=== PATIENT | female | born 1960 | race Caucasian/White ===

== ENCOUNTER 2024-05-03 15:46 | Emergency (ER) | payer MEDICARE, OTHER, SELFPAY ==
[2024-05-03 15:51] VITALS: BP 174/90
[2024-05-03 16:35] VITALS: BP 151/80
[2024-05-03 17:00] VITALS: BP 138/83
[2024-05-03 17:01] LABS: % Basophils 0.7 % (0-2); % Eosinophils 1.3 % (0-6); % Immature Granulocytes 0.1 % (0-0.5); % Lymphocytes 38.4 % (20.5-51.1); % Monocytes 9.6 % (1.7-9.3); % Neutrophils 49.9 % (42.2-75.2); Absolute Basophils 0.1 10^3/uL (0-0.2); Absolute Eosinophils 0.1 10^3/uL (0-0.7); Absolute Lymphocytes 2.6 10^3/uL (1.2-3.4); Absolute Monocytes 0.6 10^3/uL (0.1-0.6); Absolute Neutrophils 3.3 10^3/uL (1.4-6.5); Hematocrit 40.4 % (37.0-47.0); Hemoglobin 14.2 g/dL (12.0-16.0); Mean Corp Hgb Conc. 35.1 g/dL (33.0-37.0); Mean Corpuscular Hgb 32.8 pg (27.0-31.0); Mean Corpuscular Volume 93.3 fL (81.0-99.0); Mean Platelet Volume 10.8 fL (7.4-10.4); Nucleated Red Blood Cells % 0 %; Platelet Count 217 10^3/uL (130-400); Red Blood Cell Count 4.33 10^6/uL (4.20-5.40); Red Cell Dist. Width 12.3 % (11.5-14.5); White Blood Cell Count 6.7 10^3/uL (4.8-10.8)
[2024-05-03 17:16] LABS: ALT (SGPT) 21 U/L (0-35); AST (SGOT) 33 U/L (14-36); Albumin 4.5 g/dl (3.5-5.0); Alkaline Phosphatase 62 U/L (38-126); Blood Urea Nitrogen 24 mg/dl (7-17); Calcium 9.7 mg/dl (8.4-10.2); Carbon Dioxide 29 mmol/L (22-30); Chloride 102 mmol/L (98-107); Glucose 89 mg/dl (70-99); Potassium 4.4 mmol/L (3.5-5.1); Sodium 140 mmol/L (135-145); Total Bilirubin 0.3 mg/dl (0.2-1.3); Total Protein 7.2 g/dl (6.3-8.2); eGFR > 60.00
[2024-05-03 17:20] LABS: Troponin I < 0.012 ng/ml
--- NOTE | 2024-05-03 18:19 | ED.GENMED ---
History of Present Illness
General
Chief Complaint: Blood Pressure Problem
Source: patient
Exam Limitations: none
Time Seen by Provider: 05/03/24 16:12
Nursing documentation reviewed up to this point in time: agreed with
History of Present Illness
History of Present Illness:
pt is a 64 y/o F with no h/o HTN
here with elevated bp the past 2 days
she says she woke up yesterday with a very mild frontal headache and that prompted her to take her bp which was 129/90 which is 'high' for her
she says she took some ibuprofen for the headache which wasn't really bad; she was distracted by work all day and then did notice it later but it never worsened
she woke up in the night not because of th eheafache but because of something she was worried about
but then again this mornin gchecked bp and it was 149/92; pt says she checked it later on todya and it was 160/100 which is very high for her so she decided to come in
no h/o BP issues
denies neuro symptoms other than heaache, cp, sob, kidney problems
she says that 2 days ago she had some chest pain to right chest and was worried maybe she had a heart atack but says 'i'm a hypocondriac'
she said her cp was brief and resolved on its own
Past History
Past History
ED Past Medical History: None
ED Past Surgical History: None
Social History
Tobacco: Non-smoker
Alcohol: None
Drug: None
Review of Systems
Review of Systems
Allergies reviewed?: Yes
All Other Systems: Not applicable
Phy Exam
Physical Exam
Physical Exam:
GENERAL: Alert , in no apparent distress, very well appearing
HEAD: NCAT
EYE: pupils equal and reactive, no nystagmus, no photophobia
NECK: Supple,full rom, nontender
ENT: o/p clr, mmm.
CARDIAC: Regular rate and rhythm . no edema
LUNGS: Clear breath sounds bilaterally, no acute respiratory distress, no wheezes/rales/rhonchi
ABDOMEN: Soft, without focal tenderness, no r/g, no cvat
NEUROLOGICAL: Alert and orientedx 4, cn intact, no facial asymmetry, 5/5 strength in UE/LE, sensation intact, romberg neg, ambulates without assistance, neg pronator drift
SKIN: Warm and dry, skin intact.
MUSCULOSKELETAL: No edema, well perfused.
PSYCH: Normal and appropriate interaction.
Course
Orders/Labs/Results
Orders:
Orders
05/03/24 16:35
CT Head W/o Iv Contrast Urgent
Comment:
Reason For Exam: headache, elevated bp
05/03/24 16:36
Electrocardiogram (*1) Urgent
Reason for Study: Hypertension, Benign
EKG- Treatment ONCE
05/03/24 16:47
Complete Blood Count/With Diff Urgent
Comprehensive Metabolic Panel Urgent
Troponin I Urgent
Abnormal Lab Results
05/03/24
16:47
MCH 32.8 H pg
(27.0-31.0)
MPV 10.8 H fL
(7.4-10.4)
Monocytes % 9.6 H %
(1.7-9.3)
BUN 24 H mg/dl
(7-17)
05/03/24 16:47
05/03/24 16:47
Vital Signs
Initial and Last Documented VS:
Initial Vital Signs
Temp Pulse BP Pulse Ox
98.0 F 96 174/90 98
05/03/24 15:51 05/03/24 15:51 05/03/24 15:51 05/03/24 15:51
Last Documented Vital Signs
Temp Pulse Resp BP Pulse Ox
98.0 F 76 19 138/83 96
05/03/24 15:51 05/03/24 18:45 05/03/24 18:45 05/03/24 17:00 05/03/24 18:45
MDM/Problems Addressed
Differential Diagnosis Includes:
stress, htn, headache, acs
MDM/Problems Addressed:
64 y/o F
healthy
woke up yesterday with mild headache
she took her BP which was mildly high
throughout the day felt ok, headache mild
took her BP atgain and it has continued to rise
was upset overnight about something she did not wish to disclose
today still has headahce, bp 160/100 which worried her
headache is present but mild
no neuro syptoms
no vmoiting, no confusion, no h/o fhx of brain aneurysm
well appearing slightly anxious
bp initially high but improved on its own 130/80s
neuro intact
hasn't had labs in a while
cr normal
ekg no ischemia
trop neg
ct head neg
pt feels comfortable going home, f/u with PCP.
*Critical Care Note
Total Time (30-74mins, 75-104mins- exclusive of procedures): Not Applicable
ED Attending Note
-
Portions of this chart may have been created with voice recognition software.� Occasional wrong word or��sound alike� substitutions may have occurred due to the inherent limitations of voice recognition software.
Discharge Plan
Departure
Patient Disposition: Home (Routine Discharge)
Date of Disposition: 05/03/24
Time of Disposition: 18:43
Patient with high blood pressure during this ER visit?: Yes
Condition: Fair
Covid-19: Not Applicable
Discharge Problem:
Elevated blood pressure reading, Headache
Instructions: Headache, Adult ED, High Blood Pressure ED
Referrals:
Carlos Costa DO [Family Provider] - Follow up in 2-3 days
Activity Restrictions/Additional Instructions:
WE ARE NOT SURE THE CAUSE OF YOUR ELEVATED BLOOD PRESSURE READINGS BUT THEY IMPROVED HERE
YOUR BLOOD WORK WAS REASSURING
YOUR CAT SCAN WAS NEGTIVE
YOUR EKG WAS NORMAL
FOLLOW UP WITH YOUR FAMILY DOCTOR NEXT WEEK
RETURN FOR: SEVEREE WORST HEADACHE OF LIFE, CHEST PAIN, SHORTNESS OF BREATH, OR ANY CONCERNS
Interventions
Interventions:
*Risk Screen - Suicide Last Done: 05/03/24 15:55
*General Assessment Last Done: 05/03/24 15:55
*Neglect/Abuse Screening Last Done: 05/03/24 15:57
ED- Fall Risk Assessment Last Done: 05/03/24 16:53
*ED COVID-19 Vaccine History Last Done: 05/03/24 15:55
*Nursing Disposition Last Done: 05/03/24 19:06
ED- Cardiac Assessment Last Done: 05/03/24 16:53
ED- Neurological Assessment Last Done: 05/03/24 16:53
ED- Pulmonary Assessment Last Done: 05/03/24 16:53
Discharge Date and Time
Discharge Date/Time: 05/03/24 19:07
Print Language: [id number]
== END 2024-05-03 19:07 | disposition home or self-care (01) ==
LOC: EMR 15:46
PROVIDERS: Physician Assistant; EMERGENCY PHYSICIAN Emergency Medicine; FAMILY PHYSICIAN Family Medicine
DX: I10 Essential (primary) hypertension (principal); R51.9 Headache, unspecified
CPT/HCPCS: 99284; 70450; 80053; 84484; 85025; 93005